=== PATIENT | male | born 1985 | race Caucasian/White ===

== ENCOUNTER 2017-01-18 08:00 | Inpatient (IN) | payer MEDICAID ==
[~2017-01-18] VITALS: Ht 165.1 cm; Wt 50.5 kg
[2017-01-18] MEDS ORDERED: OMEPRAZOLE40 MG PO (09:06)
[2017-01-21 09:57] VITALS: BP 107/52; BMI 18.6
--- NOTE | 2017-01-21 15:15 | NUR ---
MG TALKED WITH PAULINE FERGUSON IN OP. NO FAMILY IN WAITING ROOMS 2500,2525 AND NO FAMILY IN PATIENT ROOM. PAULINE RN TO NOTIFY FAMILY.
[2017-01-21 17:15] VITALS: BP 134/76
[2017-01-21 18:18] VITALS: BP 134/76; Ht 165.1 cm; Wt 50.5 kg
[2017-01-21 19:00] VITALS: BP 133/79
[2017-01-22] VITALS: BP 126/70
--- NOTE | 2017-01-22 02:00 | NUR ---
PT RESTING IN BED WITH NO DISTRESS. RESPIRATIONS EVEN AND UNLABORED. SIDE RAILS UP X 2. BED IS LOW. CALL LIGHT IN REACH. VISITOR AT BEDSIDE.
[2017-01-22 04:00] VITALS: BP 121/70
[2017-01-22 06:36] LABS: BASOPHILS 0.1 % (0-2); EOSINOPHILS 0 % (0-7); HEMATOCRIT 39.6 % (42.0-54.0); HEMOGLOBIN 13.2 g/dL (13.5-17.5); IMMATURE GRANULOCYTES 0.2 % (0-5); LYMPHOCYTES 8.9 % (15-50); MCH 28.4 pg (26.0-34.0); MCHC 33.3 g/dL (31.0-37.0); MCV 85.2 fL (80.0-100.0); MEAN PLATELET VOLUME 9.6 fL (7.4-10.4); MONOCYTES 9.8 % (2-11); RBC 4.65 10x6/uL (4.20-6.10); RDW 12.8 % (11.5-14.5); WBC 11.4 10x3/uL (4.8-10.8)
[2017-01-22 06:37] LABS: PLATELET COUNT 204 10x3/uL (130-400)
[2017-01-22 06:43] LABS: CALC OSMOLALITY 277 mosm/kg (275-300); CARBON DIOXIDE 28.7 mmol/L (21.0-32.0); CHLORIDE - SERUM 102 mmol/L (98-107); CREATININE - SERUM 0.9 mg/dL (0.6-1.3); GLUCOSE 105 mg/dL (74-106); MAGNESIUM - SERUM 1.6 mg/dL (1.8-2.4); POTASSIUM - SERUM 4.3 mmol/L (3.5-5.1); SODIUM 140 mmol/L (136-145); UREA NITROGEN 11 mg/dL (7-18); eGFR NON AFRICAN AMERICAN > 90 mL/min (90-120)
--- NOTE | 2017-01-22 07:56 | OP ---
PATIENT NAME: CAROLYN QUIROZ MEDICAL RECORD: [id number] :87 LOCATION:[facility] ADMISSION DATE: SURGEON: ARNIE BENEDICT MD DATE OF OPERATION: 01/21/2017 PREOPERATIVE DIAGNOSES: 1. Gastroesophageal reflux disease with esophagitis. 2. Hiatal hernia. 3. Dill's esophagus. 4. Nicotine dependence. POSTOPERATIVE DIAGNOSES: 1. Gastroesophageal reflux disease with esophagitis. 2. Hiatal hernia. 3. Idll's esophagus. 4. Nicotine dependence. PROCEDURES PERFORMED: 1. Laparoscopic hiatal hernia repair. 2. Laparoscopic Rao fundoplication. ANESTHESIA: General. COMPLICATIONS: None. SPECIMENS: None. Case is clean. ESTIMATED BLOOD LOSS: 30 mL. OPERATIVE COURSE: After consent was obtained, the patient taken to the operating room, placed in a supine position on the operating table. Next, general anesthesia was given via endotracheal intubation after timeout was taken to correct to confirm the correct patient and procedure. The abdomen was prepped and draped in typical sterile fashion. Local anesthetic was injected just above the umbilicus. A stab incision was made with 11-blade scalpel. Using a 5-mm bladeless optical trocar, the abdomen was entered under direct laparoscopic vision. Adequate pneumoperitoneum was achieved. The abdominal cavity was inspected. No evidence of bowel injury. No evidence of bleeding. The patient was then placed in the steep reverse Trendelenburg position. All remaining trocars were placed, one 5-mm trocar in the left lateral quadrant, 5-mm trocar and 12-mm trocar in the right lateral quadrant and a Cam liver retractor in the subxiphoid position. All instruments were placed after the administration of local anesthetic under direct laparoscopic vision. The Cam liver retractor was then used to elevate the left liver exposing gastroesophageal junction. A large hiatal hernia was noted. At this time, short gastrics were taken along the upper third of the stomach along the cardia all the way to the left crura. The left crura was skeletonized. The less curvature was mobilized using the Harmonic scalpel. Next, the gastrohepatic ligaments of the Harmonic scalpel, dissection continued in the level of the right crura which was again dissected, skeletonized using the Harmonic scalpel. Dissection continued inferiorly and superiorly until a circumferential dissection can be performed. The hernia sac was dissected out the mediastinum. The mediastinum was dissected until approximately 5 cm of intraabdominal esophagus were obtained. Once that was complete, Yajaira pad was placed within the mediastinum. The hiatal hernia was closed with an 0-polypropylene Stratafix OPERATIVE REPORT [id number] CAROLYN QUIROZ suture. Next, the chordee was passed posterior to the gastro, passed posteriorly in the window, a loose flap Rao fundoplication was created using a 2-0 Stratafix suture. At this time, the abdomen was copiously irrigated and suctioned. There is no evidence of boundary. No evidence of bleeding. The Cam retractor was removed. The abdominal cavity was again reinspected. There is no evidence of boundary, no evidence of bleeding. The 2 larger trocars removed and were closed with 0-Vicryl suture and Elijah-Medrano suture passer under direct laparoscopic vision. At this time, all remaining instruments removed. A Valsalva maneuver was performed. Abdomen was deflated. Trocars removed. Skin was closed with 4-0 Monocryl, Mastisol and Steri-Strips. At the end of the case, all needle and instrument counts correct. No complications heard. The patient was extubated and transferred to the PACU in stable condition. TRANSINT:[id number] Voice Confirmation ID: [id number] DOCUMENT ID: [id number] ARNIE BENEDICT MD at 0756 CC: [id number] DICTATION DATE: 01/21/17 162 LEATHER LEVELER: 01/22/17 0203 [address] [place] [id number] [place] [id number]
--- NOTE | 2017-01-22 07:59 | NUR ---
PT AOX4 RESP EVEN AND NONLABORED PT DENIES NEEDS AT THIS TIME IV TO RIGHT FOREARM PATENT AND INTACT AT THIS TIME SRX2 BED AT LOWEST POSITION WILL CONTINUE TO MONITOR
[2017-01-22 09:03] VITALS: BP 118/76
--- NOTE | 2017-01-22 11:57 | NUR ---
REGINALDO DRAIN 100CC EMPTIED IN PACU
[2017-01-22 12:22] VITALS: BP 116/76
--- NOTE | 2017-01-22 16:34 | OP ---
PATIENT NAME: CAROLYN QUIROZ MEDICAL RECORD: [id number] :87 LOCATION:[facility] ADMISSION DATE:01/21/17 SURGEON: ARNIE BENEDICT MD DATE OF OPERATION: 01/22/2017 SURGEON: Arnie Benedict MD. COST SPECIALIST SURGEON: Simba Frederick MD PREOPERATIVE DIAGNOSIS: Gastrointestinal perforation, status post laparoscopic Rao fundoplication with hiatal hernia repair. POSTOPERATIVE DIAGNOSES: Gastrointestinal perforation, status post laparoscopic Rao fundoplication with hiatal hernia repair. PROCEDURE PERFORMED: 1. Diagnostic laparoscopy 2. Abdominal washout with drain placement. 3. Esophagogastroduodenoscopy. ANESTHESIA: General. COMPLICATIONS: None. SPECIMENS: None. Case was clean. OPERATIVE COURSE: After consent was obtained, the patient was taken to the operating room and placed in the supine position on the operating table. Next, general anesthesia was given via endotracheal intubation, after a timeout was taken to confirm the correct patient and procedure. The abdomen was then prepped and draped in the typical sterile fashion. Intraoperative consultation was obtained to partner, Dr. Frederick for assistance in the operation. At this time, the scope, Dr. Frederick performed an on table esophagogastroduodenoscopy without insufflation. He passed the scope to the gastroesophageal junction. There were no abnormalities of the esophagus identified. There was no bleeding within the esophagus. There was no area of injuries identified. There was no bleeding and no stigmata moderate bleeding. There was no exudate noted on esophagus or the GE junction. At this time, the scope was turned off and left in place within the esophagus. Local anesthetic was injected at the previous trocar sites. The previous trocar sites were opened with an 11-blade scalpel. Using an 11-mm bladeless optical trocar, the abdomen was entered under direct laparoscopic vision. Adequate pneumoperitoneum was achieved. Under direct laparoscopic vision, all prior trocars were placed trough all prior trocar sites as well as the Cam liver retractor. The left lobe of the liver was retracted exposing the GE junction. The GE junction was meticulously inspected. The posterior stomach was meticulously inspected. The greater curvature of the stomach was meticulously inspected. There was no evidence of injury. There were no adhesions. There was no purulent exudate noted within the abdominal cavity. At this time, the patient was placed in the steep Trendelenburg position. The entire upper abdomen was filled with water with the stomach and esophagus completely submerged. Dr. Frederick resumed the EGD and he passed the EGD to the gastroesophageal junction. He insufflated the stomach and a leak test was performed. There was no evidence of leak. There were no bubbles OPERATIVE REPORT [id number] CAROLYN QUIROZ identified in the abdomen or the distal esophagus. At this time, dye was injected, methylene blue. Dr. Frederick injected methylene blue through the working channel of the EGD. Prior to dye administration again, the stomach was tight, there was no evidence of leak. There was no area of bleeding noted within the stomach. There was no stigmata of bleeding. The stomach was left insufflated for approximately 5 minutes. The abdomen was left irrigated with water, there was no dye noted within the water. There were no bubbles at this time. The stomach was completely desufflated. The scope was passed through the GE junction in 3-4 occasions with meticulous inspection. Again, there was no evidence of injury. No stigmata of bleeding. There was again no positive bubble test within the abdomen. At this time, the scope was removed. The esophagus and GE junction, Eviseal was placed along the distal esophagus as well as the GE junction. A 10 flat REGINALDO drain was placed into the abdomen and passed posterior to the GE junction and esophagus. The greater omentum was mobilized up to the GE junction. The greater omentum was tacked in place with 3-0 Vicryl suture over the anterior portion of the wrap. At this time, all remaining irrigation was suctioned from the abdomen. The Cam liver retractor was removed. The abdomen was desufflated. All remaining trocars were removed. The fascial incisions were closed with 0 Vicryl sutures. The skin was closed with 4-0 Monocryl, Mastisol and Steri-Strips. At the end of the case, all needle and instrument counts were correct. No complications occurred. The patient was extubated and transferred to the PACU in stable condition. TRANSINT:[id number] Voice Confirmation ID: [id number] DOCUMENT ID: [id number] ARNIE BENEDICT MD at 6630 CC: [id number] DICTATION DATE: 01/22/17 1139 MATH TUTOR: 01/22/17 1337 ADM IN [facility] [address] [place] [id number]
[2017-01-22 23:59] VITALS: BP 109/67
--- NOTE | 2017-01-23 02:00 | NUR ---
PT IN BED WITH NO DISTRESS. RESPIRATIONS EVEN AND UNLABORED. SIDE RAILS X 2. BED LOW. CALL LIGHT IN REACH.
[2017-01-23 04:00] VITALS: BP 123/70
[2017-01-23 05:37] LABS: BASOPHILS 0.1 % (0-2); EOSINOPHILS 0.3 % (0-7); HEMATOCRIT 34.9 % (42.0-54.0); HEMOGLOBIN 11.7 g/dL (13.5-17.5); IMMATURE GRANULOCYTES 0.1 % (0-5); MCH 28.6 pg (26.0-34.0); MCHC 33.5 g/dL (31.0-37.0); MCV 85.3 fL (80.0-100.0); MEAN PLATELET VOLUME 9.5 fL (7.4-10.4); MONOCYTES 9.4 % (2-11); NEUTROPHILS 61.1 % (40-80); PLATELET COUNT 169 10x3/uL (130-400); RBC 4.09 10x6/uL (4.20-6.10); RDW 12.9 % (11.5-14.5)
[2017-01-23 05:38] LABS: WBC 7.8 10x3/uL (4.8-10.8)
[2017-01-23 05:52] LABS: CALC OSMOLALITY 277 mosm/kg (275-300); CALCIUM 8.4 mg/dL (8.5-10.1); CARBON DIOXIDE 26.7 mmol/L (21.0-32.0); CHLORIDE - SERUM 104 mmol/L (98-107); CREATININE - SERUM 0.8 mg/dL (0.6-1.3); GLUCOSE 83 mg/dL (74-106); MAGNESIUM - SERUM 1.4 mg/dL (1.8-2.4); POTASSIUM - SERUM 3.8 mmol/L (3.5-5.1); SODIUM 140 mmol/L (136-145); UREA NITROGEN 12 mg/dL (7-18); eGFR NON AFRICAN AMERICAN > 90 mL/min (90-120)
--- NOTE | 2017-01-23 08:05 | NUR ---
PT AOX4 RESP EVEN AND NONLABORED PT DENIES NEEDS AT THIS TIME SRX2 BED AT LOWEST SETTING CALL LIGHT WITHIN REACH WILL CONTINUE TO MONITOR
[2017-01-23 09:33] VITALS: BP 118/77
[2017-01-23] MEDS ORDERED: HYDROCODON-ACE1 EAC7 PO (10:32)
--- NOTE | 2017-01-23 10:48 | NUR ---
Patient Name: CAROLYN QUIROZ Admission Status: Elective Accout number: [id number] Admission Date: 01-21-2017 : 1985 Admission Diagnosis:GASTRO-ESOPHAGEAL REFLUX DISEASE WITH ESOPHAGITIS Attending: ANRIE BENEDICT Current LOS: 2 Anticipated DC Date: 01-24-2017 Planned Disposition: Home Primary Insurance: [employer] [place] Discharge Planning Comments: CM MET WITH PATIENT AND (MY) REGARDING D/C NEEDS AND PLANS. PATIENT STATED HE WILL DRIVE HIMSELF HOME AT DISCHARGE AND THEY HAVE 4 STEPS TO ENTER HOME AND NO STAIRS INSIDE. PATIENT IS INDEPENDENT WITH HIS CARE AND HAS NO DME AT HOME. PATIENTS PCP IS DR. JONES AND USES [facility]. PATIENT REFUSED HOME HEALTH AND HAS NO OTHER NEEDS AT THIS TIME. CM WILL CONTINUE TO FOLLOW PATIENT WITH D/C NEEDS AND PLANS. PCP DR. JONES [place] [phone] MY QUIROZ () [phone] Brake Assembler: Cristina Rice Is the patient Alert and Oriented? Yes 0 * How many steps to enter\exit or inside your home? 4 0 * PCP DR. JONES 0 * Pharmacy [place] 0 * Preadmission Environment Home with Family 0 * ADLs Independent 0 * Equipment None 0 * List name and contact numbers for known caregivers / representatives who currently or will assist patient after discharge: MY QUIROZ () [phone] 0 * Community resources currently utilized None 0 * Additional services required to return to the preadmission environment? Yes 0 * Can the patient safely return to the preadmission environment? Yes 0 * Has this patient been hospitalized within the prior 30 days at any hospital? No 0 Grand Total: 0
--- NOTE | 2017-01-23 11:43 | NUR ---
IV DISCONTINUED WITH CATHETER INTACT AT THIS TIME PT GIVEN ONE PAPER SCRIPT FOR PAIN MED AT THIS TIME ALONG WITH DISCHARGE INSTRUCTIONS AT THIS TIME. PT TAKEN VIA WHEELCHAIR TO PRIVATE VEHICLE AT THIS TIME
--- NOTE | 2017-01-23 13:03 | NUR ---
CM LATE ENTRY: PATIENT D/C HOME WITH NO NEEDS BY PRIVATE CAR/ WITH PATIENT. DENIED HOME HEALTH
--- NOTE | 2017-01-24 09:08 | OP ---
PATIENT NAME: CAROLYN QUIROZ MEDICAL RECORD: [id number] :87 LOCATION:[facility] ADMISSION DATE:01/21/17 SURGEON: DANIEL ROSE MD DATE OF OPERATION: 01/22/2017 PREOPERATIVE DIAGNOSIS: Dye extravasation after Rao fundoplication. POSTOPERATIVE DIAGNOSES: Dye extravasation after Rao fundoplication with no evidence of esophageal leak or a gastric leak. PROCEDURE: Esophagogastroduodenoscopy. SURGEON: Daniel Rose MD JEWELRY DRILL OPERATOR: None. BLOOD LOSS: Minimal. ANESTHESIA: General. OPERATIVE COURSE: The patient was under general anesthesia. I scrubbed in. I advanced the gastroscope down the esophagus and into the stomach and duodenum. I then withdrew it into the stomach. Dr. Benedict instilled a lot of normal saline in the upper abdomen. I then insufflated the stomach and we saw no bubbling. Dr. Benedict manipulated the esophagus and stomach and still, there was no bubbling even these structures were under normal saline. I withdrew back into the esophagus and then I advanced through the wrap multiple times while insufflating and we saw no bubbling and no evidence of leak from the gastroscope. I saw no evidence of an esophageal injury. No evidence of a gastric injury. The wrap was intact. I retroflexed and examined the wrap very carefully. We then injected methylene blue and then normal saline down through the working port of the gastroscope. We then insufflated the stomach again. We tested the stomach and esophagus pneumatically with this methylene blue and saw no leakage of methylene blue and no bubbling. Again, I advanced through the wrap and back into the esophagus, multiple times. I examined all the esophageal wall as well as the gastric wall and noted no evidence of an injury. The endoscope was then withdrawn under direct vision. I then scrubbed in with Dr. Benedict. I assisted him with running the camera and placement of drain. I injected the seal up around the EG junction. TRANSINT:[id number] Voice Confirmation ID: [id number] DOCUMENT ID: [id number] DANIEL ROSE MD at 0908 CC: ARNIE BENEDICT MD [id number] DICTATION DATE: 01/22/17 1141 CANAL STRUCTURE OPERATOR: 01/22/17 1353 DIS IN 01/23/17 [facility] [address] [place] [address]
== END 2017-01-23 11:44 | disposition home or self-care (01) | DRG 328 ==
LOC: D.RAD 08:00 → D.OPS 01-21 05:10 → D.SDCHOLD 01-21 05:10 → D.MS 01-21 05:10 → D.RAD 01-21 05:10 → EDSTATUS 01-21 08:00 → D.RAD 01-21 11:30 → D.OPS 01-21 16:48 → D.MS 01-21 16:48 → D.OPS 01-21 16:49 → D.MS 01-21 16:49 → D.OPS 01-21 16:49 → D.MS 01-23 11:44 → D.SDCHOLD 01-23 11:44
PROVIDERS: ADMIT Surgery
PROC: 0BQR4ZZ (ICD-10-PCS; 2017-01-21)
PROC: 0DV44ZZ Restriction of Esophagogastric Junction, Percutaneous Endoscopic Approach (ICD-10-PCS; principal; 2017-01-21 11:30)
PROC: 0BQS4ZZ (ICD-10-PCS; 2017-01-21 11:30)
PROC: 0DJ08ZZ Inspection of Upper Intestinal Tract, Via Natural or Artificial Opening Endoscopic (ICD-10-PCS; 2017-01-22)
PROC: 3E1M38X Irrigation of Peritoneal Cavity using Irrigating Substance, Percutaneous Approach, Diagnostic (ICD-10-PCS; 2017-01-22)
DX: K21.0 Gastro-esophageal reflux disease with esophagitis (principal); K44.9 Diaphragmatic hernia without obstruction or gangrene; F17.200 Nicotine dependence, unspecified, uncomplicated